=== PATIENT | male | born 2000 | race Caucasian/White ===

== ENCOUNTER 2023-08-19 15:10 | Emergency (ER) | payer SELFPAY ==
[~2023-08-19] VITALS: Ht 175.3 cm; Wt 100.0 kg
[2023-08-19 15:18] VITALS: O2SAT 97
[2023-08-19] MEDS ORDERED: IBUPROFEN 400MG TABLET PO ONE (15:30)
[2023-08-19 20:20] VITALS: TEMP 98.2
[2023-08-19 20:31] VITALS: BP 109/58; PULSE 107; RESP 16
[2023-08-19] MEDS: IBUPROFEN 400MG TABLET PO NR (20:31)
== END 2023-08-19 20:33 | disposition home or self-care (01) ==
LOC: ER 15:10
DX: S93.402A Sprain of unspecified ligament of left ankle, initial encounter (principal); X58.XXXA Exposure to other specified factors, initial encounter; Y93.89 Activity, other specified; Y92.89 Other specified places as the place of occurrence of the external cause; Y99.8 Other external cause status
CPT/HCPCS: 73600; 73620; 99284